=== PATIENT | male | born 1960 | race Caucasian/White ===

== ENCOUNTER 2022-01-01 09:48 | Emergency (ER) | payer OTHER ==
[2022-01-01 10:12] VITALS: BP 151/83; PULSE 66; RESP 16; TEMP 98; BMI 29.7
== END 2022-01-01 11:00 | disposition home or self-care (01) ==
LOC: JER 09:48
DX: J06.9 Acute upper respiratory infection, unspecified (principal)
CPT/HCPCS: 0241U-QW; 93005; 93010; 99284-25